=== PATIENT | female | born 1995 | race Caucasian/White ===

== ENCOUNTER 2019-02-03 00:28 | Inpatient (IN) | payer OTHER ==
[2019-02-03] VITALS (25 sets, daily range): BP systolic 80–120; BP diastolic 36–63; PULSE 60–108; RESP 13–24; Ht 162.6 cm; Wt 50.2 kg
[~2019-02-03] VITALS: Ht 162.6 cm; Wt 50.2 kg
[2019-02-03] MEDS ORDERED: SOD CHLORIDE 0.9% 1,000 ML IV STA (01:38)
[2019-02-03] MEDS ORDERED: ONDANSETRON 4 MG INJ IV STA (01:38)
[2019-02-03] MEDS ORDERED: morphine 4 MG/ML VIAL IV STA (01:38)
[2019-02-03] MEDS ORDERED: PIPER-TAZO 3.375 GM IV (PMX) 100 ML IVPB ONE (03:00)
[2019-02-03] MEDS ORDERED: ACETAMINOPHEN 325 MG TAB PO PRN ×2 (03:30→12:30)
[2019-02-03] MEDS ORDERED: ONDANSETRON 4 MG INJ IV PRN ×4 (03:30→12:30)
[2019-02-03] MEDS ORDERED: PIPER-TAZO 3.375 GM IV (PMX) 100 ML IVPB SCH (08:00)
[2019-02-03] MEDS ORDERED: morphine 2 MG INJ IV PRN ×2 (08:00→12:30)
[2019-02-03] MEDS: SOD CHLORIDE 0.9% 1,000 ML IV SCH ×2 (08:43→16:14)
[2019-02-03] MEDS ORDERED: DESFLURANE 15 MIN ONE (11:35)
[2019-02-03] MEDS ORDERED: LIDOCAINE 2% (SDV) 5 ML INJ ONE (11:35)
[2019-02-03] MEDS ORDERED: NEOSTIGMINE 3 MG/3 ML SYRINGE ONE ×2 (11:35→12:40)
[2019-02-03] MEDS ORDERED: ONDANSETRON 4 MG INJ ONE (11:35)
[2019-02-03] MEDS ORDERED: METOCLOPRAMIDE 10 MG INJ ONE (11:35)
[2019-02-03] MEDS ORDERED: PROPOFOL 20 ML ONE (11:35)
[2019-02-03] MEDS ORDERED: GLYCOPYRROLATE 0.4 MG INJ ONE (11:35)
[2019-02-03] MEDS ORDERED: ROCURONIUM 50 MG INJ ONE (11:35)
[2019-02-03] MEDS ORDERED: MIDAZOLAM 1 MG/ML 2 ML INJ ONE (11:51)
[2019-02-03] MEDS ORDERED: LIDOCAINE 1%/EPI (1:100,000) (MDV) 20 ML ONE (11:52)
[2019-02-03] MEDS ORDERED: OXYCODONE/ACETAMINOPHEN (5/325) TAB PO PRN ×2 (12:00→12:30)
[2019-02-03] MEDS ORDERED: PROCHLORPERAZINE 10 MG INJ IV PRN (12:00)
[2019-02-03] MEDS ORDERED: MEPERIDINE 25 MG INJ IV PRN (12:00)
[2019-02-03] MEDS ORDERED: FENTAnyl 50 MCG/ML VIAL IV PRN (12:00)
[2019-02-03] MEDS ORDERED: HYDROmorphONE 1 MG/5 ML IV SYRINGE IV PRN (12:00)
[2019-02-03] MEDS ORDERED: BUPIVACAINE 0.25% (MPF) 30 ML INJ INJ ONE (12:22)
[2019-02-03] MEDS: D5-NS + KCL 20 MEQ 1,000 ML IV SCH ×2 (14:34→22:01)
[2019-02-03] MEDS: PIPER-TAZO 3.375 GM IV (PMX) 100 ML IVPB SCH ×2 (14:34→19:50)
[2019-02-03] MEDS: HYDROCODONE/APAP (5/325) TAB PO PRN (19:16)
[2019-02-04] MEDS: PIPER-TAZO 3.375 GM IV (PMX) 100 ML IVPB SCH ×3 (00:32→11:12)
[2019-02-04] MEDS: SOD CHLORIDE 0.9% 1,000 ML IV SCH ×2 (02:20→14:00)
[2019-02-04] MEDS: D5-NS + KCL 20 MEQ 1,000 ML IV SCH (02:24)
[2019-02-04] MEDS: HYDROCODONE/APAP (5/325) TAB PO PRN ×2 (02:24→14:32)
[2019-02-04 02:29] VITALS: BP 98/66; PULSE 89; RESP 18
[2019-02-04] MEDS ORDERED: PANTOPRAZOLE 40 MG INJ IV SCH (06:00)
[2019-02-04] MEDS ORDERED: ENOXAPARIN 40 MG/0.4 ML SYG SC SCH (07:00)
[2019-02-04 07:27] VITALS: BP 100/55; PULSE 64; RESP 18
[2019-02-04 14:01] VITALS: BP 100/58; PULSE 67; RESP 18
== END 2019-02-04 17:00 | disposition home or self-care (01) | DRG 342 ==
LOC: FTE 00:28 → MS1 03:10
PROVIDERS: ADMIT Internal Medicine; ATTEND Internal Medicine
PROC: 0DTJ4ZZ Resection of Appendix, Percutaneous Endoscopic Approach (ICD-10-PCS; principal; 2019-02-03 12:00)
DX: K35.30 Acute appendicitis with localized peritonitis, without perforation or gangrene (principal); R65.10 Systemic inflammatory response syndrome (SIRS) of non-infectious origin without acute organ dysfunction
CPT/HCPCS: 36415; 71045; 74176; 80048; 80053; 81001; 81003; 81025; 83605; 83690; 85025; 85610; 85730; 88304; 93005; 96374; 96375; C9113; J1170; J1650; J2175; J2250; J2270; J2405; J2543; J2710; J2765; J3010; J3480; J7030